=== PATIENT | male | born 1945 | race Caucasian/White ===

== ENCOUNTER 2016-08-05 08:28 | Day surgery (SDC) | payer MEDICARE, OTHER ==
[2016-08-03 13:54] VITALS: BMI 23.4
[~2016-08-05 08:28] MED LIST: LACTATED RINGERS 1,000 ML IV SCH; LIDOCAINE 1% 20 ML VIAL (10MG/ML) FOR IV START INTRADERMA PRN
[2016-08-05 09:31] VITALS: TEMP 97.6
[2016-08-05] MEDS ORDERED: LIDOCAINE 1% INJ 10MG/ML (20 ML MDV) ONE (09:58)
[2016-08-05] MEDS ORDERED: PROPOFOL 10 MG/ML 20 ML VIAL IV ONE (09:58)
--- NOTE | 2016-08-05 10:13 | P.PCN ---
Date of Procedure: 08/05/16 Preoperative Diagnosis: Postoperative Diagnosis: Procedure(s) Performed: BRIEF HISTORY: Patient is a 70-year-old pleasant white male, scheduled for an elective colonoscopy as a part of screening for colon rectal neoplasia. PROCEDURE PERFORMED: Colonoscopy. PREOPERATIVE DIAGNOSIS: Screening for colon cancer. IV sedation per Anesthesia. PROCEDURE: After informed consent was obtained, the patient, was brought into the endoscopy unit. IV sedation was administered by Anesthesia under continuous monitoring. Digital rectal examination was normal. Initially the Olympus CF- 160 flexible video colonoscope was then inserted in the rectum, gradually advanced into the cecum without any difficulty. Careful examination was performed as the scope was gradually being withdrawn. Ileocecal valve and the appendiceal orifice were visualized and appeared normal. Prep was excellent. Mucosa of the cecum, ascending colon, transverse colon, descending colon, sigmoid colon, and rectum appeared normal. Retroflexion was performed in the rectum and no lesions were seen. The patient tolerated the procedure well. IMPRESSION: Normal-appearing colon from rectum to cecum with no evidence of colorectal neoplasia. RECOMMENDATIONS: Findings of this examination were discussed with the patient as well as his family. He was advised to have a repeat screening colonoscopy in 10 years. Implants: Indications for Procedure: Operative Findings: Description of Procedure:
[2016-08-05] MEDS ORDERED: HYDROcodone/APAP 7.5-325MG 1 EACH TAB PO ONE (10:28)
[2016-08-05 10:35] VITALS: RESP 16
[2016-08-05 10:44] VITALS: BP 133/60; PULSE 55
== END 2016-08-05 11:00 | disposition home or self-care (01) ==
LOC: ORWHC2ENDO 08:28
PROVIDERS: ATTEND Internal Medicine Gastroenterology
DX: Z12.11 Encounter for screening for malignant neoplasm of colon (principal); I10 Essential (primary) hypertension; K21.9 Gastro-esophageal reflux disease without esophagitis; G43.909 Migraine, unspecified, not intractable, without status migrainosus; Z79.82 Long term (current) use of aspirin; Z79.891 Long term (current) use of opiate analgesic; Z79.899 Other long term (current) drug therapy
CPT/HCPCS: G0121; J2001; J2704

== ENCOUNTER 2016-10-14 12:08 | Day surgery (SDC) | payer MEDICARE ==
[2016-10-05 11:24] VITALS: BMI 24.3
[~2016-10-14 12:08] MED LIST changes: +ACETAMINOPHEN TAB 500 MG TAB PO ONE; +DEXAMETHASONE SOD PHOSPHATE 10 MG/ML 1 ML VIAL IV ONE; +HYDROmorphone 1 MG/ML 1 ML SYRINGE IVP PRN; -LIDOCAINE 1% 20 ML VIAL (10MG/ML) FOR IV START INTRADERMA PRN; +MELOXICAM 7.5 MG TAB PO ONE; +MIDAZOLAM 2 MG/2 ML VIAL IV PRN; +ONDANSETRON 4 MG/2 ML VIAL IVP ONE; +Pre Op ABX Message 1 EACH MISC MISCELLANE ONE
[2016-10-14 12:47] VITALS: TEMP 98.2
[2016-10-14] MEDS ORDERED: LIDOCAINE 1% 20 ML VIAL (10MG/ML) FOR IV START INTRADERMA ONE (12:58)
[2016-10-14] MEDS ORDERED: MIDAZOLAM 2 MG/2 ML VIAL ONE (14:07)
[2016-10-14] MEDS ORDERED: HYDROmorphone (PF) 1 MG/ML ONE (14:07)
[2016-10-14] MEDS ORDERED: SUCCINYLCHOLINE CHLORIDE 100 MG/5 ML SYR IV ONE (14:07)
[2016-10-14] MEDS ORDERED: ROPIVACAINE 5 MG/ML 30 ML VIAL ONE (14:07)
[2016-10-14] MEDS ORDERED: LIDOCAINE 1% INJ 10MG/ML (20 ML MDV) ONE (14:07)
[2016-10-14] MEDS ORDERED: LIDOCAINE 2%-EPI 1:100,000 20 ML VIAL ONE (14:07)
[2016-10-14] MEDS ORDERED: PROPOFOL 10 MG/ML 20 ML VIAL IV ONE (14:07)
[2016-10-14] MEDS ORDERED: KETOROLAC 30 MG/ML 1 ML VIAL ONE (14:07)
[2016-10-14] MEDS ORDERED: fentaNYL (PF) 50 MCG/ML 2 ML AMP ONE (14:07)
[2016-10-14] MEDS ORDERED: SODIUM CHLORIDE 0.9% 50 ML with ceFAZolin 2,000 MG IV ONE ×2 (14:23)
[2016-10-14] MEDS ORDERED: LACTATED RINGERS 1,000 ML IV ONE (14:50)
[2016-10-14] MEDS ORDERED: EPINEPHrine 4 MG in SODIUM CHLORIDE 0.9% IRRIGATIO 3,000 ML IRRIGATION ONE (14:50)
[2016-10-14 16:29] VITALS: RESP 16
[2016-10-14 17:53] VITALS: BP 138/71; PULSE 74
--- NOTE | 2016-10-24 15:25 | P.OP ---
Date of Procedure: 10/18/16 Preoperative Diagnosis: Postoperative Diagnosis: Procedure(s) Performed: PREOPERATIVE DIAGNOSES: 1. Right shoulder rotator cuff tear. 2. Chronic impingement syndrome. 3. Acromioclavicular osteoarthritis. 4. Superior labral degenerative tear. POSTOPERATIVE DIAGNOSES: 1. Right shoulder rotator cuff tear (supraspinatus, 1.5 cm). 2. Chronic impingement syndrome. 3. Acromioclavicular osteoarthritis. 4. Labral degenerative tear. 5. Severe biceps tendon degeneration 6. Moderate adhesions glenohumeral joint and subacromial space PROCEDURES PERFORMED: 1. Right shoulder arthroscopy with rotator cuff repair 2. Arthroscopic partial distal clavicle excision 3. Arthroscopic lysis of adhesions with subacromial bursectomy 4. Arthroscopic debridement superior labral tear and biceps tenotomy 5. Arthroscopic subacromial decompression ANESTHESIA: General. ESTIMATED BLOOD LOSS: Less than 25 mL TOURNIQUET: None MULTIMEDIA MANAGER: La Suarez (assistance with: Positioning, retraction, camera operation, repair, closure, dressing) COMPLICATIONS: None. DISPOSITION: To postanesthesia care unit INDICATIONS: Mr. Austin is a 70 year old male with a history of rotator cuff difficulties. Conservative treatment has failed. MRI was suspicious for a tear , and the patient wishes to have it repaired. I have examined the patient in the office and proposed rotator cuff repair via an arthroscopic or mini-open approach, as well as other procedures to optimize the shoulder and outcome, such as decompression of spurs and debridement of loose or degenerated tissue. I have explained the risks of this surgery as being inclusive of, but not limited to: bleeding, infection, scarring, discomfort, blood vessel and/or nerve damage, need for further surgery, stiffness, persistence or worsening of problems, , and other risks. The consent form has been completed and signed. PROCEDURE: Appropriate consent was obtained from the patient. The patient was taken to the operating room and placed in the supine position. General anesthesia was initiated and after confirmation of adequate anesthesia, the patients right shoulder was examined. Initial range of motion showed flexion to 170 abduction to 170, external rotation to 70 and internal rotation to 70. The shoulder was stable. Next, the patient was rotated into the lateral decubitus position and stabilized to the table with a boggs bag and padded straps. Care was taken to make sure that all pressure points were adequately padded. Bear-hugger was used along with bilateral leg sequential compression devices. Prepping and draping was completed in the usual aseptic fashion using ChloraPrep. The patient received intravenous antibiotics prior to incision. The shoulder was suspended from traction with 15 lbs. of weight in a position of 45 degrees abduction. Landmarks were outlined with a skin marking pen. A spinal needle was inserted into the glenohumeral joint and fluid was administered to distend the joint. Some pressure was noted after 100 mL was administered. A posterior portal was created using an 11 blade and the arthroscopic canula, over a dull trocar, was carefully inserted into the joint. Arthroscopy then commenced. An anterior portal was inserted in the rotator interval area using inside-out technique. Biceps tendon showed severe deterioration. Biceps tenotomy was performed using a shaver. The tendon stump was then allowed to retract into the bicipital groove. Infraspinatus and teres minor attachments were normal. Subscapularis tendon showed a partial tear along the superior rolled border which was addressed with debridement. Hyaline cartilage of the glenoid and humeral head showed degenerative changes typical for age. Supraspinatus attachment after superficial debridement showed a 1.5 cm tear which was full thickness. No loose bodies were noted in the joint. Superior labrum showed moderate degenerative tearing but was well-attached. Negative peel back sign. There was also evidence of minor degenerative labral tearing in the inferior area. Loose fibers of labrum in this area were debrided away back to stable labrum. Synovitis with adhesions was noted superior to the superior labrum and within the rotator interval. This was debrided and removed where the capsule appeared inflamed, using an arthroscopic shaver. Attention was then directed to the subacromial space. The camera and instruments were redirected into the subacromial space and bursoscopy was performed. The patients bursa was inflamed and thickened, indicating chronic bursitis. A lateral portal was created using outside-in technique. The supraspinatus tendon was examined particularly closely. There was an approximately 1.5 cm full thickness crescent-shaped tear. The loose fibers of the tear were debrided back to stable tissue and the defect in the tendon was repaired arthroscopically after careful preparation of the supraspinatus footprint with mellisa and rasp to create a good bleeding surface of bone, see below. The subacromial bursa contained moderate degenerative appearing adhesions within the superior space, but also the lateral anterior and posterior spaces as well. This degenerative material which consisted of thickened bursal material, was resected using a shaver. Meticulous hemostasis was maintained using the ArthroCare device. The undersurface of the acromion had frictional changes consistent with impingement syndrome. The underside of the acromion anteriorly was cleared of soft tissue using an arthroscopic radiofrequency ablator. The frictional changes of the rotator cuff matched exactly the location of the rotator cuff tear in the critical zone. A formal subacromial decompression was performed using a mellisa. Approximately 5 mm of material was removed from the anterior-inferior corner of the acromion. This resection was beveled upwards laterally, and carried to the AC joint. The AC joint appeared arthritic with inferior spurring. This spurring was removed with a mellisa, co- planing the resection with the acromial resection. The rotator cuff tear was then repaired as follows. Supraspinatus footprint was debrided back to bleeding bone using a mellisa. Full decortication was not performed. A reverse mattress suture using Fiber Tape from [employer] was deployed into the torn supraspinatus edge using a [employer] suture passer. A 4.75 mm Swivelock anchor was then deployed at the greater tuberosity and the suture tension was adjusted so that there was complete reduction and coverage of the footprint. The #2 suture contained within the anchor was also used for additional fixation of the cuff tissue, and applying a horizontal mattress type suture and tying the suture with alternating half hitches arthroscopically. It was noted that there was complete closure of the cuff defect. The repair was stable. Subsequently, 4-0 Monocryl was used to close the portal holes. Steri-strips were applied as well as sterile dressing. The shoulder was then placed into a sling and the patient was transferred to recovery room in stable condition. Sponge and needle counts were correct. Implants: Indications for Procedure: Operative Findings: Description of Procedure:
== END 2016-10-14 18:40 | disposition home or self-care (01) ==
LOC: OR 12:08
PROVIDERS: ATTEND Orthopaedic Surgery
DX: M75.101 Unspecified rotator cuff tear or rupture of right shoulder, not specified as traumatic (principal); M75.41 Impingement syndrome of right shoulder; M19.011 Primary osteoarthritis, right shoulder; S43.401A Unspecified sprain of right shoulder joint, initial encounter; X58.XXXA Exposure to other specified factors, initial encounter; M65.9 Synovitis and tenosynovitis, unspecified; M75.01 Adhesive capsulitis of right shoulder; E78.2 Mixed hyperlipidemia; I25.10 Atherosclerotic heart disease of native coronary artery without angina pectoris; I11.9 Hypertensive heart disease without heart failure; Z79.891 Long term (current) use of opiate analgesic; Z79.899 Other long term (current) drug therapy; Z79.82 Long term (current) use of aspirin
CPT/HCPCS: 64415; 29826; 29827; 29824; C1713 ×2; C1894; J0171; J2250; J1100; J2405; J2001; J3010; J1885; J1170; J0690; J2795; J0330; J2704

== ENCOUNTER → 2018-10-01 | Outpatient (CLI) | payer MEDICARE ==
[2018-10-01 08:36] LABS: HCT 45.3 % (39.0-53.0); HGB 15.3 gm/dL (13.0-17.5); MCHC 33.9 g/dL (31.0-37.0); MCV 91.6 fL (80.0-100.0); Mean Platelet Volume 9.2; Platelet Count 152 k/uL (150-450); RBC 4.95 m/uL (4.30-5.90); RDW 12.8 % (11.5-15.5); WBC 6.7 k/uL (3.8-10.6)
[2018-10-01 08:40] LABS: African American GFR (CKD) >90 (>60 ml/min/1.73 sqM); Anion Gap 7 mmol/L; Blood Urea Nitrogen 17 mg/dL (9-20); Carbon Dioxide 30 mmol/L (22-30); Chloride 105 mmol/L (98-107); Potassium 4.7 mmol/L (3.5-5.1); Sodium 142 mmol/L (137-145)
== END | disposition home or self-care (01) ==
LOC: LABPAT 06:52
PROVIDERS: ATTEND Internal Medicine Interventional Cardiology
DX: Z01.812 Encounter for preprocedural laboratory examination (principal); I25.10 Atherosclerotic heart disease of native coronary artery without angina pectoris
CPT/HCPCS: 36415; 80051; 82565; 84520; 85027

== ENCOUNTER 2018-10-02 06:18 | Day surgery (SDC) | payer MEDICARE ==
[2018-09-26 14:49] VITALS: BMI 22.0
[2018-10-02] MEDS ORDERED: ASPIRIN 325 MG TAB ONE (06:28)
[2018-10-02] MEDS ORDERED: SODIUM CHLORIDE 0.9% 1,000 ML IV SCH ×2 (06:31→08:45)
[2018-10-02 07:00] VITALS: TEMP 97.9
[2018-10-02] MEDS ORDERED: fentaNYL (PF) 50 MCG/ML 2 ML AMP ONE (07:01)
[2018-10-02] MEDS ORDERED: BENZOCAINE SPRAY 1 CAN MUCOUS MEM ONE (07:21)
[2018-10-02] MEDS ORDERED: MIDAZOLAM (PF) 2 MG/2 ML VIAL IV ONE ×2 (07:22→07:23)
[2018-10-02] MEDS ORDERED: fentaNYL (PF) 50 MCG/ML 2 ML AMP IV ONE (07:22)
[2018-10-02 07:26] VITALS: RESP 16
[2018-10-02] MEDS ORDERED: IV FLUID CONTINUATION 1,000 ML IV ONE (07:39)
--- NOTE | 2018-10-02 08:02 | ECHOT ---
TRANSESOPHAGEAL ECHOCARDIOGRAM INDICATION: Evaluation of aortic valve. PROCEDURE: After explaining the procedure to the patient, its risks and complications, his blood pressure, heart rate, O2 saturation was monitored. The throat was sprayed with Cetacaine. He had 3 mg intravenous Versed and 50 mcg intravenous fentanyl. The probe was introduced into the esophagus without difficulties. Images were obtained. Following that, the probe was removed. There was no immediate complication. FINDINGS: Left atrial size is normal. Left atrial appendage is normal. Left ventricular size is normal. The overall systolic function is mildly impaired. Ejection fraction is estimated at 45%-50%. The tricuspid valve mildly thickening with preserved opening. Mitral valve revealed mild redundancy. The tricuspid valve is normal, descending thoracic aorta appears to be normal. No pericardial effusion was noted. Contrast bubble study revealed no shunting across the interatrial septum. Doppler pulse wave and color Doppler obtained revealed a mild mitral and tricuspid regurgitation with a moderate central aortic regurgitation. There was no shunting by color Doppler study. CONCLUSION: 1. Normal left atrial size. 2. Mildly impaired left ventricular systolic function. 3. Tricuspid aortic valve with moderate central aortic regurgitation. 4. Mild mitral and tricuspid regurgitation. 5. Normal appearance of descending thoracic aorta. MMODL / IJN: [id number] /
[2018-10-02] MEDS ORDERED: IOPAMIDOL-370 125ML BTL INJ ONE (08:24)
[2018-10-02] MEDS ORDERED: IOPAMIDOL-370 100ML BTL INJ ONE (08:24)
[2018-10-02] MEDS ORDERED: RX INFO: IV CONTRAST WAS GIVEN 1 EACH MISC MISCELLANE PRN (08:38)
[2018-10-02] MEDS ORDERED: HYDROcodone/APAP 7.5-325MG 1 EACH TAB PO PRN (08:39)
[2018-10-02] MEDS ORDERED: LORATADINE 10 MG TAB PO SCH (09:00)
[2018-10-02] MEDS ORDERED: NON-FORMULARY DRUG (Omeprazole 40 MG) PO SCH (09:00)
[2018-10-02] MEDS ORDERED: NON-FORMULARY DRUG (Aspirin [Adult Low Dose Aspirin Ec] 81 MG) PO SCH (09:00)
[2018-10-02] MEDS ORDERED: METOPROLOL SUCCINATE (ER) 25 MG TAB.ER.24H PO SCH (09:00)
[2018-10-02] MEDS ORDERED: PREGABALIN 50 MG CAP PO SCH (09:00)
--- NOTE | 2018-10-02 09:30 | CC ---
CARDIAC CATHETERIZATION REPORT Mr. Austin is a 72-year-old male with known history of hypertension, hyperlipidemia, history of aortic valve disease and recent worsening in the LV systolic function. Recommendation made regarding cardiac catheterization. The procedures, risks, and complication were discussed with the patient who is in full understanding and agreement. PROCEDURE: Patient was brought to the semiconductor lab technician in a fasting semi-state after receiving fentanyl and Benadryl and achieving moderate conscious sedated state. Using Xylocaine anesthesia and Seldinger technique, a 6-Uruguayan sheath was introduced in the right femoral artery, an 8-Uruguayan sheath in the right femoral vein. Multiple attempts to advance the Pearsall-Oni catheter in the right ventricle were unsuccessful. At that point, the Pearsall-Oni catheter was removed and selective right and left coronary angiography was performed using 6-Uruguayan, 4 bend, right and left Jesus Alberto catheter. Multiple views of the coronary artery including carlotta-axial views were obtained. Following that, a 6-Uruguayan tight pigtail catheter was introduced in the left ventricle and a 30 degree SMITH view of the left ventricle was obtained. Following that, an DEANNA view of the ascending aorta was obtained. Following that, catheter and sheath were removed. Hemostasis was obtained with deployment of an Angio-Seal in the right femoral artery and compression of the right femoral vein. There was no immediate complication. FINDINGS: FLUOROSCOPY: There was calcification involving the left anterior descending artery. LEFT MAIN: This is a large-sized vessel bifurcating into left circumflex, left anterior descending artery. Left main coronary artery has about 10%-20% plaque distally. The rest of the vessel has no high-grade stenosis. LEFT ANTERIOR DESCENDING ARTERY: This is a large-sized vessel, reaching toward the apex with a wraparound apex segment, giving rise to a large diagonal branch proximally. The diagonal branch has a 70% plaque, following the takeoff of the diagonal branch, there are two sequential lesion of about 80% in the LAD. The rest of the vessel has no high-grade stenosis. LEFT CIRCUMFLEX: This is a nondominant vessel giving rise to a large obtuse marginal branch. The left circumflex has mild plaque of 10% proximally without any evidence of high-grade stenosis. RIGHT CORONARY ARTERY: This is a large dominant vessel, bifurcating distally into PDA and posterolateral segment and branches. The right coronary artery proximally has 10% to 20% plaque, is diffusely disease and an ectatic distally. The vessel has a 60% plaque. The rest of the vessel has no evidence of focal stenosis. LEFT VENTRICULOGRAM: Left ventriculogram is performed in 30 degree SMITH view and revealed global hypokinesis with an ejection fraction of about 45%. There was no significant mitral regurgitation. AORTOGRAM: Aortogram was performed in the DEANNA view and revealed normal appearance of the ascending aorta with a tricuspid valve and 3+ aortic regurgitation. HEMODYNAMICS: There was no gradient across the aortic valve. The left ventricular end- diastolic pressure was 8-10 mmHg. CONCLUSION: 1. 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 2. Moderate disease in the right coronary artery with mild disease in the left circumflex. 3. Mildly impaired left ventricular systolic function. 4. 3+ aortic regurgitation. RECOMMENDATION: At this time, I would recommend to re-evaluate the patient regarding the need to undergo aortic valve replacement with coronary artery bypass grafting. Those findings and recommendation were discussed with the patient and his family who are in full understanding and agreement. Duration of the procedure is 26 minutes. MMODL / IJN: [id number] /
[2018-10-02 12:45] VITALS: PULSE 59
[2018-10-02 13:29] VITALS: BP 141/75
[2018-10-02] MEDS ORDERED: ATORVASTATIN 80 MG TAB PO SCH (21:00)
== END 2018-10-02 13:54 | disposition home or self-care (01) ==
LOC: CATHCVL 06:18
PROVIDERS: ATTEND Internal Medicine Interventional Cardiology
DX: I25.10 Atherosclerotic heart disease of native coronary artery without angina pectoris (principal); I10 Essential (primary) hypertension; E78.5 Hyperlipidemia, unspecified; I35.1 Nonrheumatic aortic (valve) insufficiency; Z79.82 Long term (current) use of aspirin; Z79.899 Other long term (current) drug therapy
CPT/HCPCS: 93312; 93320; 93325; 93458; 93567; C1760; C1894 ×2; C1769; J3010; Q9967 ×2; J2250; 93460

== ENCOUNTER → 2021-07-27 | Outpatient (CLI) | payer MEDICARE ==
[2021-07-27 14:57] LABS: ALT 25 U/L (10-49); AST 19 U/L (14-35); African American GFR (CKD) 91.4 (60.0-200.0); Albumin 4.3 g/dL (3.8-4.9); Albumin/Globulin Ratio 2.26 (1.60-3.17); Alkaline Phosphatase 89 U/L (41-126); BUN/Creat Ratio 19.76 Ratio (12.00-20.00); Blood Urea Nitrogen 18.5 mg/dL (9.0-27.0); Calcium 8.9 mg/dL (8.7-10.3); Carbon Dioxide 29.2 mmol/L (20.0-27.5); Chloride 104 mmol/L (96-109); Chol/HDL Ratio 2.88 Ratio; Globulin 1.9 g/dL (1.6-3.3); Glucose 94 mg/dL (70-110); LDL Cholesterol,Calculated 58.9 mg/dL (0.0-131.0); Non-African American GFR(CKD) 78.8 (60.0-200.0); Potassium 4.8 mmol/L (3.5-5.5); Sodium 141 mmol/L (135-145); Total Protein 6.2 g/dL (6.2-8.2); VLDL Calculation 17.48 mg/dL (5.00-40.00)
== END | disposition home or self-care (01) ==
LOC: LABWHC1 09:27
PROVIDERS: ATTEND Nurse Practitioner Adult Health
DX: I10 Essential (primary) hypertension (principal); E78.2 Mixed hyperlipidemia
CPT/HCPCS: 36415; 80053; 80061

== ENCOUNTER → 2021-08-17 | Outpatient (CLI) | payer MEDICARE ==
[2021-08-17 15:41] LABS: Basophils # (A) 0.06 X 10*3/uL (0.00-0.10); Basophils % (A) 0.9 %; Eosinophils # (A) 0.23 X 10*3/uL (0.04-0.35); Eosinophils % (A) 3.4 %; HCT 44.6 % (39.6-50.0); HGB 14.3 g/dL (13.0-17.0); Immature Grans, Automated 0.3 %; Lymphocytes # (A) 1.24 X 10*3/uL (0.90-5.00); Lymphocytes % (A) 18.5 %; MCH 30.4 pg (27.0-32.0); MCHC 32.1 g/dL (32.0-37.0); MCV 94.7 fL (80.0-97.0); Mean Platelet Volume 10.3 fL (9.5-12.2); Monocytes # (A) 0.77 X 10*3/uL (0.20-1.00); Monocytes % (A) 11.5 %; NRBC Per 100 WBC 0 /100 WBCS (0.0-0.0); Neutrophils # (A) 4.37 X 10*3/uL (1.80-7.70); Neutrophils % (A) 65.4 %; RBC 4.71 X 10*6/uL (4.40-5.60); RDW 11.9 % (11.5-14.5); WBC 6.69 X 10*3/uL (4.50-10.00)
[2021-08-17 15:42] LABS: RBC Morphology NORMAL
[2021-08-17 16:41] LABS: African American GFR (CKD) 90.2 (60.0-200.0); Anion Gap 9.4 mmol/L (10.00-18.00); BUN/Creat Ratio 17.86 Ratio (12.00-20.00); Blood Urea Nitrogen 16.9 mg/dL (9.0-27.0); Calcium 9.3 mg/dL (8.7-10.3); Carbon Dioxide 27.3 mmol/L (20.0-27.5); Non-African American GFR(CKD) 77.8 (60.0-200.0); Potassium 4.9 mmol/L (3.5-5.5)
== END | disposition home or self-care (01) ==
LOC: LABWHC1 08:55
PROVIDERS: ATTEND Internal Medicine
DX: D69.6 Thrombocytopenia, unspecified (principal); E87.5 Hyperkalemia; R82.90 Unspecified abnormal findings in urine
CPT/HCPCS: 36415; 80048; 85025; 87086

== ENCOUNTER → 2021-10-27 | Outpatient (CLI) | payer MEDICARE ==
--- NOTE | 2021-10-27 15:53 | XR ---
EXAM TYPE: LUMBAR SPINE X RAY SERIES COMPARISON: NONE HISTORY: Pain TECHNIQUE: 3 views are submitted. FINDINGS: Diffuse osteopenia with multilevel hypertrophic and degenerative change and facet arthropathy. Suspec t foraminal encroachment L4-5 and L5-S1. Vascular calcifications are noted and there is diffuse osteo penia. Question of punctate 2 mm left renal calculus. IMPRESSION: 1. Diffuse osteopenia with multilevel moderate to severe degenerative disc disease and facet arthropa thy. Suspect foraminal encroachment lower lumbar spine correlate with MRI. 2. A question a tiny left renal calculus measuring 2 mm.
== END | disposition home or self-care (01) ==
LOC: RADXRMAIN 15:23
PROVIDERS: ATTEND Internal Medicine
DX: M54.50 Low back pain, unspecified (principal)
CPT/HCPCS: 72100

== ENCOUNTER 2021-10-30 07:47 | Emergency (ER) | payer MEDICARE ==
[2021-10-30 07:55] VITALS: BP 129/65; PULSE 67; RESP 16; TEMP 97.1
[2021-10-30] MEDS ORDERED: KETOROLAC 15 MG/ML 1 ML VIAL IVP STA (08:12)
[2021-10-30] MEDS ORDERED: methylPREDNISolone SOD SUCCI 125 MG/2 ML VIAL IV STA (08:12)
[2021-10-30] MEDS ORDERED: HYDROmorphone 1 MG/ML 1 ML SYRINGE IVP STA (08:12)
--- NOTE | 2021-10-30 08:24 | ED ---
General Adult HPI - General Chief complaint: Extremity Problem,Nontraumatic Stated complaint: ABD Pain,Leg pain Time Seen by Provider: 10/30/21 07:50 Source: patient, RN notes reviewed, old records reviewed Mode of arrival: wheelchair Limitations: no limitations - History of Present Illness Initial comments: This is a 75-year-old male who presents emergency Department with chronic back pain and sciatica. Patient states about a week ago he injured it while stretching and working out he came in emergency department was given steroids after he had neck strain. Patient states he also takes Vicodin. Patient states the pain has not gotten better and over the last couple days is gotten considerably worse. Patient states the pain seems to radiate down the inner thigh always downed was leg and he has a little bit of left lower back pain. Patient states the pain feels typical of his sciatica though most times it runs down the back of his leg. Patient denies any redness or swelling. Patient denies any pain with palpation. Patient denies any direct injury to the area. Patient denies any numbness weakness per patient denies any urinary retention or incontinence. Does have a appointment on November for injections to relieve the pain. Patient did not contact the back surgeon or orthopedic surgeon since his last visit as he was instructed to do - Related Data Home Medications Medication Instructions Recorded Confirmed Aspirin [Adult Low Dose Aspirin EC] 81 mg PO DAILY 08/03/16 10/02/18 Atorvastatin [Lipitor] 80 mg PO HS 08/03/16 10/02/18 Loratadine [Claritin] 10 mg PO DAILY 08/03/16 10/02/18 Metoprolol Succinate [Toprol XL] 25 mg PO BID 08/03/16 10/02/18 Omeprazole [PriLOSEC] 40 mg PO DAILY 08/03/16 10/02/18 Hydrocodone/Acetaminophen [Jolon 1 tab PO Q6HR PRN 10/05/16 10/02/18 7.5-325] Pregabalin [Lyrica] 50 mg PO TID 10/02/18 10/02/18 Previous Rx's Medication Instructions Recorded predniSONE [Deltasone] 20 mg PO BID #10 tab 10/23/21 Gabapentin 300 mg PO BID #14 cap 10/30/21 predniSONE [Deltasone] 60 mg PO DAILY #12 tab 10/30/21 Allergies Allergy/AdvReac Type Severity Reaction Status Date / Time No Known Allergies Allergy Verified 09/26/18 14:38 Review of Systems ROS Statement: Those systems with pertinent positive or pertinent negative responses have been documented in the HPI. ROS Other: All systems not noted in ROS Statement are negative. Past Medical History Past Medical History: Coronary Artery Disease (CAD), Cancer, GERD/Reflux, Hyperlipidemia, Hypertension, Osteoarthritis (OA) Additional Past Medical History / Comment(s): MIGRAINES, SKIN CANCER, aortic valve 'not functioning properly", heart murmer, irregular heart beat, degenerative disks History of Any Multi-Drug Resistant Organisms: None Reported Past Surgical History: Heart Catheterization, Orthopedic Surgery Additional Past Surgical History / Comment(s): RIB BIOPSY, HEMORRHOIDECTOMY, rt shoulder rotator cuff, nick cataracts Past Anesthesia/Blood Transfusion Reactions: Motion Sickness Past Psychological History: No Psychological Hx Reported Past Alcohol Use History: Occasional Past Drug Use History: None Reported - Past Family History Father Family Medical History: Cancer Additional Family Medical History / Comment(s): LUNG CANCER General Exam - General Exam Comments Initial Comments: GENERAL: Patient is well-developed and well-nourished. Patient is nontoxic and well- hydrated and is in moderate distress. ENT: Neck is soft and supple. No significant lymphadenopathy is noted. Oropharynx is clear. Moist mucous membranes. Neck has full range of motion without eliciting any pain. EYES: The sclera were anicteric and conjunctiva were pink and moist. Extraocular movements were intact and pupils were equal round and reactive to light. Eyelids were unremarkable. SKIN: Skin is clear with no lesions or rashes and otherwise unremarkable. NEUROLOGIC: Patient is alert and oriented x3. Cranial nerves II through XII are grossly intact. Motor and sensory are also intact. Normal speech, volume and content. Symmetrical smile. Patient is straight leg raise without any pain. Patient's perineum exam is normal. MUSCULOSKELETAL: Normal extremities with adequate strength and full range of motion. No lower extremity swelling or edema. No calf tenderness. Patient has no pain to palpation of the inner thigh or area that he describes as having pain. Area is not red or swollen. LYMPHATICS: No significant lymphadenopathy is noted PSYCHIATRIC: Normal psychiatric evaluation. Limitations: no limitations Course Vital Signs 10/30/21 07:49 Temperature 97.1 F L Pulse Rate 67 Respiratory 16 Rate Blood Pressure 129/65 O2 Sat by Pulse 96 Oximetry Medical Decision Making - Medical Decision Making Patient received Dilaudid Toradol and Solu-Medrol in the emergency department. Patient was reevaluated and he was feeling better but pain did not completely resolve but he fell could not go home at this time. Patient was also given a lidocaine patch. Disposition Clinical Impression: Sciatica Disposition: HOME SELF-CARE Condition: Good Instructions (If sedation given, give patient instructions): Sciatica (ED) Prescriptions: predniSONE [Deltasone] 60 mg PO DAILY #12 tab Gabapentin 300 mg PO BID #14 cap Is patient prescribed a controlled substance at d/c from ED?: No Referrals: Eligio Weeks MD [Primary Care Provider] - 1-2 days Time of Disposition: 09:31
[2021-10-30] MEDS ORDERED: LIDOCAINE 5% PATCH TOPICAL SCH (09:30)
== END 2021-10-30 09:55 | disposition home or self-care (01) ==
LOC: EC 07:47
DX: M54.30 Sciatica, unspecified side (principal); I25.10 Atherosclerotic heart disease of native coronary artery without angina pectoris; K21.9 Gastro-esophageal reflux disease without esophagitis; E78.5 Hyperlipidemia, unspecified; I10 Essential (primary) hypertension; M19.90 Unspecified osteoarthritis, unspecified site; Z79.82 Long term (current) use of aspirin; Z79.899 Other long term (current) drug therapy
CPT/HCPCS: 99283; 96374; 96375 ×2; J2930; J1170; J1885

== ENCOUNTER → 2021-11-17 | Outpatient (CLI) | payer MEDICARE | END | disposition home or self-care (01) | LOC: LABWHC1 14:22 | PROVIDERS: ATTEND Internal Medicine Gastroenterology | DX: K52.9 Noninfective gastroenteritis and colitis, unspecified (principal) | CPT/HCPCS: 36415; 83516 ==

== ENCOUNTER → 2022-01-10 | Outpatient (CLI) | payer MEDICARE ==
[2022-01-10 14:26] LABS: ALT 32 U/L (10-49); AST 24 U/L (14-35); Chol/HDL Ratio 2.85 Ratio; LDL Cholesterol,Calculated 59.9 mg/dL (0.0-131.0)
== END | disposition home or self-care (01) ==
LOC: LABWHC1 08:49
PROVIDERS: ATTEND Internal Medicine Interventional Cardiology
DX: E78.2 Mixed hyperlipidemia (principal)
CPT/HCPCS: 36415; 80061; 84450; 84460

== ENCOUNTER → 2022-07-22 | Outpatient (CLI) | payer MEDICARE ==
--- NOTE | 2022-07-23 00:06 | MR ---
EXAMINATION TYPE: MR brain wo/w con DATE OF EXAM: 07/22/2022 COMPARISON: None HISTORY: Headaches CONTRAST: Performed utilizing 6.5 mL intravenous Gadavist gadolinium contrast. TECHNIQUE: Multiplanar, multiecho imaging on a 3.0 Kimmie magnet is performed through the brain. Stud y is performed within 24 hours of arrival to the hospital. The craniovertebral junction is normal. The pituitary is normal. Diffusion-weighted imaging is performed. No abnormal hyperintensity is present to suggest an acute i ntracranial infarct or acute ischemic change. Signal within the brain appears normal. Typical hyperintensities on T2 or inversion recovery weighted sequences which can be associated with migraine headaches are not evident on the current exam. Ventricles and sulci are appropriate for the patient age. IMPRESSIONS: 1. No acute intracranial process pre- and post- contrast MRI brain.
== END | disposition home or self-care (01) ==
LOC: RADMRIMAIN 19:23
PROVIDERS: ATTEND Internal Medicine
DX: G43.909 Migraine, unspecified, not intractable, without status migrainosus (principal)
CPT/HCPCS: 70553; A9585

== ENCOUNTER → 2023-01-04 | Outpatient (CLI) | payer MEDICARE ==
--- NOTE | 2023-01-04 15:09 | US ---
EXAMINATION TYPE: US scrotum with doppler. TECHNIQUE: Grayscale and color Doppler Duplex imaging performed of the scrotum. DATE OF EXAM: 01/04/2023 COMPARISON: NONE CLINICAL INDICATION: Male, 77 years old with history of R31.29, N45.1 EPIDIDYMITIS; Epididymitis per order. Slight left testicle discomfort. EXAM MEASUREMENTS: TESTICLES: Right Testicle: 4.0 x 3.4 x 2.1 cm Dilated appearance of rete testis: 1.9 x 1.0 x 1.0 cm. Left Testicle: 4.6 x 3.3 x 2.2 cm. Dilated appearance of rete testis: 2.4 x 1.3 x 0.8 cm. EPIDIDYMIS HEAD: Right Epididymis: 1.1 x 0.8 x 0.9 cm Left Epididymis: 0.7 x 0.8 x 1.1 cm Doppler performed to assess for testicular vascularity; bilateral color flow and waveforms are seen. Presence of hydroceles: Yes, right: 1.2 x 1.2 x 0.8 cm. Left: 0.7 x 0.3 x 0.7 cm. Presence of varicoceles: Prominent vessels on the left measure up to 2.9 mm. IMPRESSION: 1. No sonographic evidence for testicular torsion or specific findings of epididymoorchitis on the pr esent exam. 2. Small bilateral hydroceles. Slightly prominent vessels on the left suggests small left-sided varic ocele. 3. Incidental dilated rete testes, symmetric appearance from [id number].
--- NOTE | 2023-01-04 15:13 | US ---
EXAMINATION TYPE: US kidneys/renal and bladder DATE OF EXAM: 01/04/2023 COMPARISON: NONE CLINICAL INDICATION: Male, 77 years old with history of R31.29, N45.1 EPIDIDYMITIS; Microscopic hemat uria. EXAM MEASUREMENTS: Right Kidney: 10.2 x 3.9 x 4.0 cm Left Kidney: 11.9 x 4.8 x 5.2 cm Right Kidney: Hypoechoic lesion seen upper pole: 1.9 x 1.5 x 1.7 cm. Renal pelvis appears wnl post- void. No calyceal dilatation to suggest hydronephrosis. Left Kidney: Possible mild left-sided pelvocaliectasis versus parapelvic cysts measuring up to 1.7 cm . Bladder: Appears wnl Bilateral Jets seen: Yes IMPRESSION: 1. Possible mild left-sided pelvicaliectasis. If concern for early hydronephrosis, short interval fol low-up is recommended. The appearance may be due to small parapelvic cysts measuring up to 1.7 cm. 2. Indeterminate 1.9 cm cortical lesion upper pole right kidney. A debris-filled cyst is possible. Th ree-month follow-up ultrasound to ensure stability.
== END | disposition home or self-care (01) ==
LOC: RADUSWWP 12:20
PROVIDERS: ATTEND Internal Medicine
DX: N45.1 Epididymitis (principal); N43.3 Hydrocele, unspecified; R31.29 Other microscopic hematuria
CPT/HCPCS: 76770; 76870; 93975

== ENCOUNTER → 2023-01-20 | Outpatient (CLI) | payer MEDICARE ==
--- NOTE | 2023-01-22 12:57 | MR ---
EXAMINATION TYPE: MR kidney wo/w con DATE OF EXAM: 01/20/2023 3:36 PM CLINICAL INDICATION:Male, 77 years old with history of N28.9 KIDNEY LESION; PHH, Renal cysts. COMPARISON: Ultrasound 01/04/2023. TECHNIQUE: Multiplanar multi-sequence imaging was performed withou t contrast. Post contrast imaging was performed. Post IV contrast subtraction images were also submi tted for review. IV Contrast: 6.5 cc Gadobutrol FINDINGS: LOWER CHEST: No gross irregularity. ABDOMEN Liver: No evidence for hepatic steatosis or cirrhosis. Scattered high T2 signal subcentimeter probabl e hepatic cyst. No suspicious postcontrast enhancement. Gallbladder and Bile ducts: No evidence for ductal dilation, or biliary stricture or evidence of chol edocholithiasis. The gallbladder is nondistended. Pancreas: No ductal dilation. No evidence for solid mass. No suspicious postcontrast enhancement. Spleen: Normal for size. Adrenal glands: Unremarkable. Kidneys: No evidence for obstructive uropathy. No suspicious renal masses. Right: No evidence for obstructive uropathy. Right superior renal pole lesion is felt to represent do minant cyst with adjacent cysts versus small septation measuring up to 1.9 cm. This is high T2 signal . No suspicious postcontrast enhancement. Left kidney FOR obstructive uropathy. There is scattered peripelvic and renal cortical high T2 signal cyst. No suspicious postcontrast enhancement. Stomach and Bowel: No evidence for bowel wall thickening or evidence for obstruction.. Peritoneum: No evidence of pneumoperitoneum or free fluid. Vasculature: No aortic aneurysm. Musculoskeletal: The osseous structures appear intact. Lymph Nodes: No gross evidence for lymphadenopathy. Abdominal wall: Unremarkable. IMPRESSION: No suspicious renal lesion. 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 The right upper renal cyst is most compatible with minimally complex Bosniak type II cyst.
== END | disposition home or self-care (01) ==
LOC: RADMRIMAIN 14:25
PROVIDERS: ATTEND Internal Medicine
DX: N28.1 Cyst of kidney, acquired (principal); N28.9 Disorder of kidney and ureter, unspecified
CPT/HCPCS: 74183; A9585

== ENCOUNTER → 2023-01-25 | Outpatient (CLI) | payer MEDICARE ==
[2023-01-25 16:25] LABS: ALT 28 U/L (10-49); AST 23 U/L (14-35); Albumin 4.2 g/dL (3.8-4.9); Albumin/Globulin Ratio 2.21 Ratio (1.60-3.17); Alkaline Phosphatase 86 U/L (41-126); BUN/Creat Ratio 17.33 Ratio (12.00-20.00); Blood Urea Nitrogen 15.6 mg/dL (9.0-27.0); Calcium 9.6 mg/dL (8.7-10.3); Carbon Dioxide 28.8 mmol/L (21.6-31.8); Chloride 105 mmol/L (96-109); Chol/HDL Ratio 2.89 Ratio; Globulin 1.9 g/dL (1.6-3.3); Glucose 84 mg/dL (70-110); LDL Cholesterol,Calculated 62.7 mg/dL (0.0-131.0); Potassium 5.4 mmol/L (3.5-5.5); Sodium 144 mmol/L (135-145); Total Bilirubin 0.7 mg/dL (0.3-1.2); Total Protein 6.1 g/dL (6.2-8.2)
== END | disposition home or self-care (01) ==
LOC: LABWHC1 09:15
PROVIDERS: ATTEND Internal Medicine Interventional Cardiology
DX: Z00.00 Encounter for general adult medical examination without abnormal findings (principal); Z11.59 Encounter for screening for other viral diseases; E78.2 Mixed hyperlipidemia
CPT/HCPCS: 36415; 80053; 80061; 84443; 85025; 86803

== ENCOUNTER → 2023-01-27 | Outpatient (CLI) | payer MEDICARE ==
[2023-01-27 19:32] LABS: Basophils # (A) 0.07 X 10*3/uL (0.00-0.10); Basophils % (A) 0.9 %; Eosinophils % (A) 1.4 %; HCT 45.5 % (39.6-50.0); HGB 14.9 g/dL (13.0-17.0); Lymphocytes # (A) 1.48 X 10*3/uL (0.90-5.00); MCH 31.2 pg (27.0-32.0); MCHC 32.7 g/dL (32.0-37.0); MCV 95.4 FL (80.0-97.0); Mean Platelet Volume 10.2 FL (9.5-12.2); Monocytes # (A) 0.98 X 10*3/uL (0.20-1.00); Monocytes % (A) 13.3 %; NRBC Per 100 WBC 0 X 10*3/uL (0.00-0.01); Neutrophils # (A) 4.71 X 10*3/uL (1.80-7.70); Neutrophils % (A) 63.7 %; RBC 4.77 X 10*6/uL (4.40-5.60); RBC Morphology Normal (Normal); RDW 12.4 % (11.5-14.5); WBC 7.39 X 10*3/uL (4.50-10.00)
== END | disposition home or self-care (01) ==
LOC: LABWHC1 11:33
PROVIDERS: ATTEND Internal Medicine
DX: Z00.00 Encounter for general adult medical examination without abnormal findings (principal)
CPT/HCPCS: 36415; 85025

== ENCOUNTER → 2023-08-02 | Outpatient (CLI) | payer MEDICARE ==
--- NOTE | 2023-08-02 17:09 | US ---
EXAMINATION TYPE: US thyroid st tissue head/neck DATE OF EXAM: 08/02/2023 COMPARISON: NONE CLINICAL INDICATION: Male, 77 years old with history of R22.1 NECK NODULE; Palpable area noted right neck just below patient's ear, within the parotid area. Technique: Grayscale imaging of the submandibular region. FINDINGS: At the area of palpable, there is a hypoechoic area with some vascularity measuring 1.7 x 0.9 x 1.2 c m seen possibly within the right gland. IMPRESSION: Area of palpable abnormality correlates with hypoechoic structure possibly representing a lymph node versus parotid gland lesion such as with an gland tumor versus pleomorphic adenoma. Tissue simply rec ommended.
== END | disposition home or self-care (01) ==
LOC: RADUSWWP 16:21
PROVIDERS: ATTEND Internal Medicine
DX: R22.1 Localized swelling, mass and lump, neck (principal)
CPT/HCPCS: 76536

== ENCOUNTER → 2023-08-21 | Outpatient (CLI) | payer MEDICARE ==
[2023-08-21 15:43] LABS: ALT 25 U/L (10-49); AST 24 U/L (14-35); Chol/HDL Ratio 2.92 Ratio; LDL Cholesterol,Calculated 69.2 mg/dL (0.0-131.0); VLDL Calculation 19.52 mg/dL (5.00-40.00)
== END | disposition home or self-care (01) ==
LOC: LABWHC1 09:56
PROVIDERS: ATTEND Internal Medicine Interventional Cardiology
DX: E78.2 Mixed hyperlipidemia (principal)
CPT/HCPCS: 36415; 80061; 84450; 84460

== ENCOUNTER 2023-09-15 12:13 | Day surgery (SDC) | payer MEDICARE ==
[2023-09-15 13:08] VITALS: RESP 16; TEMP 98
[2023-09-15 14:30] VITALS: BP 115/55; PULSE 56
--- NOTE | 2023-09-15 15:56 | US ---
EXAMINATION TYPE: US biopsy parotid gland DATE OF EXAM: 09/15/2023 2:18 PM CLINICAL INDICATION:Male, 77 years old with history of R22.1 LOCALIZED SWELLING, MASS AND LUMP, NECK; , thyroid nodule. COMPARISON: None ATTENDING: Dr. Elio Paredes PROCEDURE: Informed consent was obtained. The risks and benefits of the procedure were discussed with the patien t. The site was marked. Timeout procedure was performed Ultrasound imaging demonstrates right parotid lesion. The patient was prepped, draped in the usual sterile fashion, and locally anesthetized with 1% lidoca ine. 3 x 18-gauge core needle biopsies were obtained.. Samples were sent to the pathology department for further analysis. Patient tolerated the procedure without incident and was sent home in stable condition. IMPRESSION: Successful ultrasound-guided right parotid gland lesion.
== END 2023-09-15 14:15 | disposition home or self-care (01) ==
LOC: RADPROMAIN 12:13
PROVIDERS: ATTEND Otolaryngology
DX: D11.0 Benign neoplasm of parotid gland (principal)
CPT/HCPCS: 42400; 76942; 88305

== ENCOUNTER → 2023-10-13 | Outpatient (CLI) | payer MEDICARE | END | disposition home or self-care (01) | LOC: LABPRL 12:00 | PROVIDERS: ATTEND Internal Medicine | DX: D64.9 Anemia, unspecified (principal) | CPT/HCPCS: 82607; 82746; 83540; 83550; 85025; 84165; G0328 ==

== ENCOUNTER → 2023-12-13 | Outpatient (CLI) | payer MEDICARE ==
[2023-12-13 09:07] LABS: Basophils % (A) 1 %; Eosinophils # (A) 0.2 k/uL (0-0.7); Eosinophils % (A) 4 %; HCT 42.8 % (39.0-53.0); Lymphocytes # (A) 1.1 k/uL (1.0-4.8); Lymphocytes % (A) 21 %; MCH 31.5 pg (25.0-35.0); MCHC 32.8 g/dL (31.0-37.0); MCV 95.9 fL (80.0-100.0); Mean Platelet Volume 7.2; Monocytes # (A) 0.6 k/uL (0-1.0); Monocytes % (A) 12 %; Neutrophils # (A) 3.3 k/uL (1.3-7.7); Neutrophils % (A) 60 %; Platelet Count 183 k/uL (150-450); RBC 4.46 m/uL (4.30-5.90); RDW 12.9 % (11.5-15.5); WBC 5.5 k/uL (3.8-10.6)
== END | disposition home or self-care (01) ==
LOC: LABWHC1 08:17
PROVIDERS: ATTEND Internal Medicine
DX: K40.90 Unilateral inguinal hernia, without obstruction or gangrene, not specified as recurrent (principal)
CPT/HCPCS: 36415; 85025

== ENCOUNTER → 2024-07-09 | Outpatient (CLI) | payer MEDICARE ==
[2024-07-09 10:40] LABS: ALT 30 U/L (10-49); AST 21 U/L (14-35); Albumin/Globulin Ratio 2.35 Ratio (1.60-3.17); Alkaline Phosphatase 87 U/L (41-126); Blood Urea Nitrogen 20.7 mg/dL (9.0-27.0); Carbon Dioxide 26.9 mmol/L (21.6-31.8); Chloride 107 mmol/L (96-109); Globulin 1.7 g/dL (1.6-3.3); Glucose 84 mg/dL (70-110); LDL Cholesterol,Calculated 57.5 mg/dL (0.0-131.0); Potassium 4.5 mmol/L (3.5-5.5); Sodium 142 mmol/L (135-145); Total Bilirubin 0.8 mg/dL (0.3-1.2); Total Protein 5.7 g/dL (6.2-8.2); VLDL Calculation 14.54 mg/dL (5.00-40.00)
== END | disposition home or self-care (01) ==
LOC: LABWHC1 07:02
PROVIDERS: ATTEND Internal Medicine Interventional Cardiology
DX: I10 Essential (primary) hypertension (principal); E78.2 Mixed hyperlipidemia
CPT/HCPCS: 36415; 80053; 80061